=== PATIENT | female | born 1945 | race African-American/Black ===

== ENCOUNTER 2021-09-17 20:00 | Inpatient (IN) | payer MEDICARE, MEDICAID ==
[~2021-09-17] VITALS: Ht 172.7 cm; Wt 74.2 kg
[2021-09-17] MEDS ORDERED: ONDANSETRON HCL 4MG/2ML INJ IV STA (20:46)
[2021-09-17] MEDS ORDERED: SODIUM CHLORIDE 0.9% 1,000 ML IV ONE (21:00)
[2021-09-17 21:39] LABS: BG BASE EXCESS 0.2 mmol/L (-2.0-2.0); BG DEOXYHEMOGLOBIN 5.7 % (0.0-5.0); BG FRACTION INSPIRED OXYGEN 21; BG HCO3 ACT 23.3 mmol/L (22.0-26.0); BG METHEMOGLOBIN 0.1 % (0.0-1.5); BG OXYGEN SATURATION 94.2 % (92.0-98.5); BG OXYHEMOGLOBIN 93.2 % (94.0-97.0); BG PCO2 33.7 mmHg (35.0-45.0); BG PH 7.458 (7.350-7.450); BG PO2 67.7 mmHg (75.0-100.0); BG SAMPLE SITE RIGHT RADIAL; BG TOTAL HEMOGLOBIN 16.3 g/dL (12.0-18.0); BG TOTAL RESPIRATORY RATE 20 b/min; BG VENT MODE ROOM AIR
[2021-09-17 21:40] LABS: CHLORIDE 104 mEq/L (98-107)
[2021-09-17] MEDS ORDERED: AZITHROMYCIN 500MG/250ML 250 ML IV ONE (22:30)
[2021-09-17] MEDS ORDERED: CEFTRIAXONE 1 G PREMIX 50 ML IV ONE (22:30)
[2021-09-17 23:44] LABS: HEMATOCRIT. 49.6 % (36.0-48.0); HEMOGLOBIN. 15.4 g/dL (12.0-16.0); MEAN CORPUSCULAR HEMOGLOBIN 29.9 pg (28.0-32.0); MEAN CORPUSCULAR VOLUME 96.4 fL (81.0-99.0); MEAN PLATELET VOLUME 9.1 fl (7.4-10.4); PLATELET 192 x1000/uL (130-400); RED BLOOD CELL COUNT 5.14 mill/uL (4.2-5.4); RED CELL DISTRIBUTION WIDTH 13.8 % (11.6-14.6)
[2021-09-18] VITALS (9 sets, daily range): BP systolic 130–163; BP diastolic 57–125
[2021-09-18 00:15] LABS: PLATELET ESTIMATE NORMAL
[2021-09-18] MEDS ORDERED: SODIUM CHLORIDE 0.9% 1000ML BAG (SEPSIS BOLUS) IV NR (01:00)
[2021-09-18 02:58] LABS: CLARITY URINE CLEAR (CLEAR); COLOR URINE DARK YELLOW (YELLOW); KETONES URINE NEGATIVE (NEGATIVE); LEUKOCYTE ESTERASE URINE TRACE (NEGATIVE); NITRITE URINE NEGATIVE (NEGATIVE); OCCULT BLOOD URINE NEGATIVE (NEGATIVE); PROTEIN URINE NEGATIVE (NEGATIVE); SPECIFIC GRAVITY URINE 1.018 (1.005-1.030)
[2021-09-18] MEDS ORDERED: ACETAMINOPHEN 650MG SUPP PR PRN (03:15)
[2021-09-18] MEDS ORDERED: KCL 20MEQ/100ML PREMIX 100 ML IV NR ×2 (03:30→05:30)
[2021-09-18] MEDS ORDERED: VANCOMYCIN 1250MG in DEXTROSE 5% WATER 250ML IV NR (03:30)
[2021-09-18] MEDS ORDERED: HYDROCODONE/ACETAMINOPHEN 5/325MG TABLET PO PRN (06:30)
[2021-09-18] MEDS ORDERED: ONDANSETRON HCL 4MG/2ML INJ IV PRN (06:30)
[2021-09-18] MEDS ORDERED: NALOXONE HCL 0.4MG/ML VIAL IV PRN (06:45)
[2021-09-18] MEDS: PIPERACILLIN/TAZOBACTAM 3.375G in DEXT 5% WATER 50ML IV SCH ×3 (08:09→22:31)
[2021-09-18] MEDS: ENOXAPARIN 40MG/0.4ML SYR SUBCUT SCH (08:12)
[2021-09-18] MEDS ORDERED: GABA800T97 PO (08:17)
[2021-09-18] MEDS ORDERED: PANT40TA51 PO (08:17)
[2021-09-18] MEDS ORDERED: HYDR-4009 PO (08:17)
[2021-09-18] MEDS ORDERED: METO25TA6 PO (08:17)
[2021-09-18] MEDS ORDERED: LOSA50TA41 PO (08:17)
[2021-09-18] MEDS ORDERED: POTA20TA82 PO (08:17)
[2021-09-18] MEDS ORDERED: FURO40TA5 PO (08:17)
[2021-09-18] MEDS ORDERED: DIGO125T2 PO (08:17)
[2021-09-18] MEDS ORDERED: ATOR40TA70 PO (08:17)
[2021-09-18] MEDS ORDERED: CARI350T27 PO (08:19)
[2021-09-18] MEDS ORDERED: TAP5 PO (08:19)
[2021-09-18] MEDS ORDERED: LORA10TA7 MT (09:29)
[2021-09-18] MEDS: AMLODIPINE 10MG TABLET PO SCH (10:40)
[2021-09-18] MEDS ORDERED: POTASSIUM CHLORIDE 20MEQ TABLET SR PO SCH ×2 (11:30→14:30)
[2021-09-18] MEDS ORDERED: HYDROCODONE/ACETAMINOPHEN 10/325MG TABLET PO SCH (11:30)
[2021-09-18] MEDS ORDERED: LORA5SOL6 MT (11:36)
[2021-09-18] MEDS: HYDROCODONE/ACETAMINOPHEN 10/325MG TABLET PO PRN ×3 (11:41→22:32)
[2021-09-18 11:48] LABS: BASOPHILS % 0.1 % (0.0-2.0); EOSINOPHILS % 0.2 % (0.0-5.0); HEMATOCRIT. 41.2 % (36.0-48.0); HEMOGLOBIN. 13.1 g/dL (12.0-16.0); LYMPHOCYTES % 7.4 % (20.0-50.0); MEAN CORPUSCULAR HEMOGLOBIN 29.6 pg (28.0-32.0); MEAN CORPUSCULAR VOLUME 93.1 fL (81.0-99.0); MEAN PLATELET VOLUME 9.5 fl (7.4-10.4); MONOCYTES % 5.2 % (2.0-8.0); NEUTROPHILS % 87.1 % (40.0-76.0); PLATELET 219 x1000/uL (130-400); RED BLOOD CELL COUNT 4.42 mill/uL (4.2-5.4); RED CELL DISTRIBUTION WIDTH 13.7 % (11.6-14.6)
[2021-09-18 11:59] LABS: CHLORIDE 107 mEq/L (98-107)
[2021-09-18] MEDS: LOSARTAN POTASSIUM 50 MG TABLET PO SCH (12:04)
[2021-09-18] MEDS: PANTOPRAZOLE 40MG DR TABLET PO SCH (12:05)
[2021-09-18] MEDS: METOPROLOL TARTRATE 25MG TABLET PO SCH ×2 (12:06→21:00)
[2021-09-18] MEDS: ACETAMINOPHEN 325MG TABLET PO PRN (14:49)
[2021-09-18] MEDS: IPRATROPIUM/ALBUTEROL 0.5-3(2.5)MG/3ML NEB HHN SCH ×2 (16:45→22:15)
[2021-09-18] MEDS ORDERED: DIGOXIN 125MCG TABLET PO SCH (18:00)
[2021-09-18] MEDS: ATORVASTATIN CALCIUM 40MG TABLET PO SCH (22:30)
[2021-09-19] VITALS (12 sets, daily range): BP systolic 124–168; BP diastolic 68–97
[2021-09-19 00:15] LABS: *COCAINE SCREEN URINE NEGATIVE (NEGATIVE)
[2021-09-19 00:16] LABS: *AMPHETAMINES SCREEN URINE NEGATIVE (NEGATIVE); *BARBITURATES SCREEN URINE NEGATIVE (NEGATIVE); *BENZODIAZEPINES SCREEN URINE NEGATIVE (NEGATIVE); CANNABINOID URINE SCREEN NEGATIVE (NEGATIVE); METHADONE URINE SCREEN NEGATIVE (NEGATIVE); OPIATES URINE SCREEN PRESUMTIVE POSITIVE (NEGATIVE); PHENCYCLIDINE URINE SCREEN NEGATIVE (NEGATIVE)
[2021-09-19] MEDS: IPRATROPIUM/ALBUTEROL 0.5-3(2.5)MG/3ML NEB HHN SCH ×3 (01:32→07:33)
[2021-09-19] MEDS: HYDROCODONE/ACETAMINOPHEN 10/325MG TABLET PO PRN ×5 (02:46→22:07)
[2021-09-19] MEDS: PIPERACILLIN/TAZOBACTAM 3.375G in DEXT 5% WATER 50ML IV SCH ×3 (05:47→21:39)
[2021-09-19] MEDS ORDERED: VANCOMYCIN 1250MG in DEXTROSE 5% WATER 250ML IV SCH (06:00)
[2021-09-19 06:49] LABS: BASOPHILS % 0.3 % (0.0-2.0); EOSINOPHILS % 1.8 % (0.0-5.0); HEMATOCRIT. 38.9 % (36.0-48.0); HEMOGLOBIN. 12.7 g/dL (12.0-16.0); LYMPHOCYTES % 10.8 % (20.0-50.0); MEAN CORPUSCULAR HEMOGLOBIN 29.8 pg (28.0-32.0); MEAN CORPUSCULAR VOLUME 91.7 fL (81.0-99.0); MEAN PLATELET VOLUME 9.6 fl (7.4-10.4); MONOCYTES % 4.4 % (2.0-8.0); NEUTROPHILS % 82.7 % (40.0-76.0); PLATELET 208 x1000/uL (130-400); RED BLOOD CELL COUNT 4.24 mill/uL (4.2-5.4); RED CELL DISTRIBUTION WIDTH 13.9 % (11.6-14.6)
[2021-09-19 07:07] LABS: CHLORIDE 111 mEq/L (98-107)
[2021-09-19] MEDS: METOPROLOL TARTRATE 25MG TABLET PO SCH (09:00)
[2021-09-19] MEDS: AMLODIPINE 10MG TABLET PO SCH (09:06)
[2021-09-19] MEDS: PANTOPRAZOLE 40MG DR TABLET PO SCH (09:06)
[2021-09-19] MEDS: POTASSIUM CHLORIDE 20MEQ TABLET SR PO SCH (09:06)
[2021-09-19] MEDS: LOSARTAN POTASSIUM 50 MG TABLET PO SCH ×2 (09:06→16:15)
[2021-09-19] MEDS: ENOXAPARIN 40MG/0.4ML SYR SUBCUT SCH (09:06)
[2021-09-19] MEDS ORDERED: HYDRALAZINE HCL 100MG TABLET PO NR (11:55)
[2021-09-19] MEDS: GABAPENTIN 300MG CAPSULE PO SCH ×2 (13:11→21:40)
[2021-09-19] MEDS: LORATADINE 10MG TABLET PO SCH (13:12)
[2021-09-19] MEDS: FLUTICASONE PROPIONATE 50MCG/SPRAY BOTTLE BOTHNSTRLS SCH ×2 (13:46→22:08)
[2021-09-19] MEDS ORDERED: IPRATROPIUM/ALBUTEROL 0.5-3(2.5)MG/3ML NEB HHN PRN (15:15)
[2021-09-19] MEDS: METHIMAZOLE 5MG TABLET PO SCH (16:15)
[2021-09-19] MEDS: ATORVASTATIN CALCIUM 40MG TABLET PO SCH (21:40)
[2021-09-19] MEDS: HYDRALAZINE HCL 100MG TABLET PO SCH (21:40)
[2021-09-20] VITALS (9 sets, daily range): BP systolic 112–146; BP diastolic 57–80
[2021-09-20] MEDS: HYDROCODONE/ACETAMINOPHEN 10/325MG TABLET PO PRN ×3 (04:22→15:35)
[2021-09-20] MEDS: PIPERACILLIN/TAZOBACTAM 3.375G in DEXT 5% WATER 50ML IV SCH ×2 (04:52→14:21)
[2021-09-20] MEDS: GABAPENTIN 300MG CAPSULE PO SCH ×2 (04:52→14:21)
[2021-09-20 07:06] LABS: BASOPHILS % 0.4 % (0.0-2.0); EOSINOPHILS % 3.2 % (0.0-5.0); HEMATOCRIT. 39.3 % (36.0-48.0); HEMOGLOBIN. 12.5 g/dL (12.0-16.0); LYMPHOCYTES % 12.3 % (20.0-50.0); MEAN CORPUSCULAR HEMOGLOBIN 29.4 pg (28.0-32.0); MEAN PLATELET VOLUME 9.4 fl (7.4-10.4); MONOCYTES % 4.9 % (2.0-8.0); NEUTROPHILS % 79.2 % (40.0-76.0); PLATELET 210 x1000/uL (130-400); RED BLOOD CELL COUNT 4.27 mill/uL (4.2-5.4); RED CELL DISTRIBUTION WIDTH 13.5 % (11.6-14.6)
[2021-09-20 07:19] LABS: CHLORIDE 112 mEq/L (98-107)
[2021-09-20] MEDS: FLUTICASONE PROPIONATE 50MCG/SPRAY BOTTLE BOTHNSTRLS SCH (08:50)
[2021-09-20] MEDS: LOSARTAN POTASSIUM 50 MG TABLET PO SCH ×2 (08:51→17:00)
[2021-09-20] MEDS: PANTOPRAZOLE 40MG DR TABLET PO SCH (08:52)
[2021-09-20] MEDS: POTASSIUM CHLORIDE 20MEQ TABLET SR PO SCH (08:52)
[2021-09-20] MEDS: METHIMAZOLE 5MG TABLET PO SCH ×2 (08:52→17:00)
[2021-09-20] MEDS: LORATADINE 10MG TABLET PO SCH (08:52)
[2021-09-20] MEDS: HYDRALAZINE HCL 100MG TABLET PO SCH (08:53)
[2021-09-20] MEDS: ENOXAPARIN 40MG/0.4ML SYR SUBCUT SCH (08:53)
[2021-09-20] MEDS: AMLODIPINE 10MG TABLET PO SCH (08:53)
[2021-09-20] MEDS ORDERED: HYDR100T26 PO (11:08)
[2021-09-20] MEDS ORDERED: LOSA50TA3 PO (11:08)
[2021-09-20] MEDS ORDERED: LEVO500T89 MT (11:08)
[2021-09-20] MEDS ORDERED: METR500T MT (11:08)
[2021-09-20] MEDS: ACETAMINOPHEN 325MG TABLET PO PRN (14:21)
== END 2021-09-20 17:00 | disposition home or self-care (01) | DRG 720 ==
LOC: ER 20:00 → 3WST 23:36 → EDBEDREQSVC 09-18 02:15 → EDBEDREQTM 09-18 02:15 → ENRESERV 09-18 02:39
PROVIDERS: ADMIT Internal Medicine; ATTEND Internal Medicine
DX: A41.9 Sepsis, unspecified organism (principal); E87.2 Acidosis; J18.9 Pneumonia, unspecified organism; E86.0 Dehydration; I48.91 Unspecified atrial fibrillation; E05.90 Thyrotoxicosis, unspecified without thyrotoxic crisis or storm; E87.6 Hypokalemia; I10 Essential (primary) hypertension; K52.9 Noninfective gastroenteritis and colitis, unspecified; K57.32 Diverticulitis of large intestine without perforation or abscess without bleeding; M06.9 Rheumatoid arthritis, unspecified; Z20.822 Contact with and (suspected) exposure to COVID-19
CPT/HCPCS: 36415; 36600; 71045; 74176; 80048; 80053; 80305; 81003; 82375; 82805; 82962; 83605; 83880; 84484; 85025; 87015; 87045; 87426; 87427; 87449; 87493; 93005; 99291; J0456; J0696; J1650; J2405; J2543; J3370; J3480; J7030; J7060